=== PATIENT | male | born 1985 | race Caucasian/White ===

== ENCOUNTER 2021-01-08 16:16 | Emergency (ER) | payer OTHER, SELFPAY ==
--- NOTE | ~2021-01-08 | US_ITS ---
EXAMINATION: US VENOUS ULTRASOUND WITH DOPPLER LOWER EXTREMITY, RIGHT CLINICAL INFORMATION: Right lower extremity pain/swelling/redness. Question DVT with cellulitis COMPARISON: None TECHNIQUE: Ultrasound of the deep veins is performed from the hip to the calf with compression sonography and color and pulse Doppler assessment. Spectral analysis with color-flow imaging is performed. FINDINGS: There is normal venous compression and respiratory variation and augmented flow. The visualized common femoral vein, superficial femoral vein, profunda femoral vein, popliteal vein, and the trifurcation region shows no evidence of deep venous thrombosis. There is no significant popliteal fossa cyst. Several prominent right inguinal lymph nodes are present, presumably reactive. If the patient's symptoms persist, followup ultrasound in 5 days 7 days might be of value to exclude proximal propagation from a non-visualized calf vein. US/US venous duplex LE RT IMPRESSION: No DVT demonstrated in the right lower extremity. Right inguinal lymphadenopathy, likely reactive if there is evidence of infection/inflammation in the right lower extremity.
[2021-01-08 16:33] VITALS: BP 133/80; PULSE 83; RESP 18; TEMP 37; O2SAT 97; BMI 31.9
[2021-01-08 17:35] LABS: MANUAL DIFF FLAG NO
[2021-01-08 17:42] LABS: Basophils Percent Auto 0.2 % (0-2); Eosinophils Percent Auto 0.1 % (0-4); Hematocrit 43.5 % (42-52); Hemoglobin 14.9 g/dl (14.0-18.0); INTERNATIONAL NORM RATIO 1.3 (0.9-1.1); Imm Gran Abs Auto 0.09 X10*3/uL (0.00-0.03); Imm Gran Pct Auto 0.6 % (0.0-0.4); Lymphocytes Absolute Auto 1.6 X10*3/uL (1.2-4.9); Lymphocytes Percent Auto 10.4 % (20-40); Mean Corpuscular HGB Conc 34.3 g/dl (31.0-36.0); Mean Corpuscular Hemoglobin 28.5 pg (27.0-33.0); Mean Corpuscular Volume 83.2 fL (80-98); Mean Platelet Volume 9.3 fL (9.4-12.4); Monocytes Absolute Auto 1.5 X10*3/uL (0.1-1.2); Monocytes Percent Auto 9.5 % (2-11); Neutrophils Absolute Auto 12.1 X10*3/uL (2.0-8.3); Neutrophils Percent Auto 79.2 % (45-73); Platelet Count 263 X10*3/uL (160-400); Prothrombin Time 14.9 SEC (9.9-13.0); Red Blood Count 5.23 X10*6/uL (4.60-5.80); White Blood Count 15.3 X10*3/uL (4.8-10.8)
--- NOTE | 2021-01-08 18:09 | ED_ITS ---
HPI - Extremity Problem General Chief complaint: Extremity Injury, Lower Stated complaint: foot infection? Time Seen by Provider: 01/08/21 16:42 Source: patient Mode of arrival: ambulatory Limitations: no limitations History of Present Illness HPI Narrative: 35-year-old male with no significant past medical history presenting to the ED with complaints of redness/swelling/pain to his right lower extremity that he noticed few days ago although yesterday he noticed it got worse and is now almost up to his knee. He reports he recently had URI symptoms and was tested for COVID although was negative and his symptoms are improving although he still has some residual intermittent nausea / vomiting. MD Complaint: extremity pain and extremity swelling Onset (ago): day(s) ( few days worse since last night) Pain Consistency: constant Location: right and lower extremity Quality: aching and constant Relieving factors: nothing Exacerbating factors: palpation Associated symptoms: denies other symptoms Related Data Previous Rx's Medication Instructions Recorded acetaminophen [Tylenol Extra 1,000 mg PO QID PRN #14 tab 01/08/21 Strength] cephalexin 500 mg PO Q6H 10 Days #40 cap 01/08/21 doxycycline monohydrate 100 mg PO BID 10 Days #20 cap 01/08/21 ibuprofen 800 mg PO Q8H PRN #14 tab 01/08/21 oxycodone 5 mg PO BID PRN #12 tab 01/08/21 Allergies Allergy/AdvReac Type Severity Reaction Status Date / Time No Known Allergies Allergy Verified 01/08/21 16:32 [No Known Allergies*] Review of Systems Review of Systems: Constitutional : No Weight loss, No Fever, No Chills, No Night Sweats, No Fatigue, No Malaise ENT/Mouth : No Hearing loss, No Ear Pain, No Nasal Congestion, No Sinus Pain, No Hoarseness, No sore throat, No Rhinorrhea, No Swallowing Difficulty Eyes: No Eye Pain, No Swelling, No Redness, No Foreign Body, No Discharge, No Vision Changes Cardiovascular : No Chest Pain, No SOB, No Dyspnea on Exertion, No Orthopnea, No Edema, No Palpitations Respiratory : No Cough, No Sputum, No Wheezing, No Smoke Exposure, No Dyspnea Gastrointestinal : No Nausea, No Vomiting, No Diarrhea, No Constipation, No abdominal Pain, No Hematochezia, No Melena Genitourinary : no irregular bleeding, No Dysuria, No Urinary Frequency, No Hematuria, No Urinary Incontinence, No Urgency, No Flank Pain, No Urinary Flow Changes, No Hesitancy Musculoskeletal : positive joint pain / swelling with surrounding erythema, No Myalgias Skin : No Skin Lesions, No rash Neuro : No Weakness, No Numbness, No Paresthesias, No Loss of Consciousness, No Dizziness, No Headache Psych : No Anxiety/Panic, No Depression, No SI/HI/AH/VH, No Social Issues, Heme/Lymph: No Bruising, No Bleeding,No Lymphadenopathy Endocrine : No Polyuria, No Polydipsia, No Temperature Intolerance Yes all other systems are reviewed and are negative ON LICENSE OF [facility] Past Medical History Attestation statement: The following information was validated with the patient. Medical History No active medical problems Social History Social History Advance Directives: No Advance Directives Information Provided: No Physical Exam Vital Signs: Vital Signs: Last Vital Signs Temp 98.8 F 01/08/21 18:34 Pulse 73 01/08/21 18:29 Resp 16 01/08/21 18:29 BP 134/86 01/08/21 18:29 Pulse Ox 97 01/08/21 18:29 Body Mass Index 31.9 vital signs have been reviewed as normal and appeared to be correct. Blood pressure normal. Heart rate normal. Respiration rate normal. Temperature normal. Oxygen saturation normal. Appearance: Alert. Oriented X3. No acute distress. Head: Normal external exam. Normocephalic. Atraumatic. Eyes: PERRLA. EOMI. Conjunctiva and sclera normal. Eyelids normal. ENT: Pharynx normal. Uvula midline. Moist mucous membranes. Neck: Normal inspection. Neck supple. FROM. No adenopathy. Thyroid Normal. No meningeal signs. No neck mass noted. CVS: Normal heart rate and rhythm. Heart sound normal. Pulses normal throughout. No murmurs/rales/gallops. Respiratory: No respiratory distress. Painless inspiration. Breath sounds normal. No wheezes/rales/rhonchi noted. Chest nontender. No accessory muscle usage noted or decreased air movement noted. Abdomen: Soft and nontender. Bowel sounds normal in all 4 quadrants. No distention noted. No organomegaly noted. No visible injury noted. Back: Full range of motion noted. No rashes/lesion/induration/fluctuance or signs of infection noted. Skin: Skin warm and dry. Normal skin color. Normal skin turgor. No rashes/lesions/lacerations noted. Extremities: patient with tenderness to palpation to right lower extremity with erythema circumferential to the entire right lower extremity with soft tissue swelling / warm consistent with possible cellulitic infection. With associated right-sided calf tenderness. No left-sided calf tenderness. No lower extremity edema. Otherwise all other Extremities exhibit normal range of motion and non tender. Neuro: Oriented X 3. No motor deficit. No sensory deficit. Reflexes normal. Normal steady gait. No focal neuro deficits noted. Vascular: + radial pulses/+ 2 distal pedal pulses/+2 dorsalis pedis b/l. Normal cap refill. No cyanosis noted to upper extremity nails and lower extremity toes nails. Course Course Course Narrative: 17:20pm - 35-year-old male with no significant past medical history presenting to the ED with complaints of redness/swelling/pain to his right lower extremity that he noticed few days ago although yesterday he noticed it got worse and is now almost up to his knee. Plan: Labs, blood cultures, lactic acid, venous duplex ultrasound of right lower extremity to evaluate for possible DVT, COVID swab. Provide a L of IV fluids, 2 g of Rocephin and 5 mg of oxycodone. I offered the patient admission although he reports he has no medical insurance at this time therefore he is refusing admission reports that he will return if his symptoms worsen. I traced the erythema on his leg. I instructed him if the erythema passes the tracing julian that he needs to return to the emergency department immediately. Reevaluation(s) Reevaluation #1: - labs obtained and [place] [address]. CRP 16.50. Patient negative for COVID/RSV/ flu. ESR still p ending. Otherwise all other labs are within normal limits. Patient negative for DVT on ultrasound of right lower extremity. - I continue to offer patient admission although he is declining due to he does not have any medical insurance therefore after the L of fluid and IV antibiotics patient will be discharged for cellulitis infection with antibiotics and instructions return in 2 days for recheck of cellulitis and to follow up with primary care provider. Patient understands agrees with this plan. Time: 18:47 MDM - Extremity (Nontraumatic) Medical Records Attestation: I reviewed the patient's medical records. Lab Data Attestation: I reviewed the patient's lab results. Result diagrams: 01/08/21 17:27 01/08/21 17:27 Labs: Lab Results 01/08/21 01/08/21 01/08/21 Range/Units 17:27 17:27 17:27 WBC 15.3 H (4.8-10.8) X10*3/uL RBC 5.23 (4.60-5.80) X10*6/uL Hgb 14.9 (14.0-18.0) g/dl Hct 43.5 (42-52) % MCV 83.2 (80-98) fL MCH 28.5 (27.0-33.0) pg MCHC 34.3 (31.0-36.0) g/dl RDW 12.0 (11.0-16.0) % Plt Count 263 (160-400) X10*3/uL MPV 9.3 L (9.4-12.4) fL Immature Gran % (Auto) 0.6 H (0.0-0.4) % Neut % (Auto) 79.2 H (45-73) % Lymph % (Auto) 10.4 L (20-40) % [place] % (Auto) 9.5 (2-11) % Eos % (Auto) 0.1 (0-4) % Baso % (Auto) 0.2 (0-2) % Lymph # (Auto) 1.6 (1.2-4.9) X10*3/uL [place] # (Auto) 1.5 H (0.1-1.2) X10*3/uL Eos # (Auto) 0.0 (0.0-0.4) X10*3/uL Baso # (Auto) 0.0 (0.0-0.2) X10*3/uL Abs Immat Gran (auto) 0.09 H (0.00-0.03) X10*3/uL Absolute Neuts (auto) 12.1 H (2.0-8.3) X10*3/uL Absolute Nucleated RBC 0.000 (0.0-0.012) X10*3/uL Nucleated RBC % (auto) 0.0 (0.0-0.2) /100WBC PT 14.9 H (9.9-13.0) SEC INR 1.3 H (0.9-1.1) Sodium 139 (135-145) mmol/L Potassium 3.4 (3.3-5.1) mmol/L Chloride 103 (96-108) mmol/L Carbon Dioxide 25 (22-29) mmol/L Anion Gap 14 (12-20) BUN 15 (9-16) mg/dL Creatinine 1.11 (0.5-1.4) mg/dL Estim Creat Clear Calc 121.7 Estimated GFR > 60 Random Glucose 103 (60-115) mg/dL Lactic Acid (0.5-2.0) mmol/L Calcium 9.2 (8.4-10.2) mg/dL Magnesium 2.0 (1.6-2.6) mg/dL Total Bilirubin 0.5 (0.0-1.0) mg/dL AST 19 (5-37) U/L ALT 32 (0-40) U/L Alkaline Phosphatase 71 (39-117) U/L C-Reactive Protein 16.50 H (< or = 0.50) mg/dL B-Natriuretic Peptide (<100) pg/mL Total Protein 7.3 (6.5-8.0) g/dL Albumin 4.4 (3.5-5.0) g/dL Coronavirus (PCR) (Negative) Influenza Type A (PCR) (Negative) Influenza Type B (PCR) (Negative) RSV RNA Qual (PCR) (Negative) 01/08/21 01/08/21 01/08/21 Range/Units 17:27 17:27 17:27 WBC (4.8-10.8) X10*3/uL RBC (4.60-5.80) X10*6/uL Hgb (14.0-18.0) g/dl Hct (42-52) % MCV (80-98) fL MCH (27.0-33.0) pg MCHC (31.0-36.0) g/dl RDW (11.0-16.0) % Plt Count (160-400) X10*3/uL MPV (9.4-12.4) fL Immature Gran % (Auto) (0.0-0.4) % Neut % (Auto) (45-73) % Lymph % (Auto) (20-40) % [place] % (Auto) (2-11) % Eos % (Auto) (0-4) % Baso % (Auto) (0-2) % Lymph # (Auto) (1.2-4.9) X10*3/uL [place] # (Auto) (0.1-1.2) X10*3/uL Eos # (Auto) (0.0-0.4) X10*3/uL Baso # (Auto) (0.0-0.2) X10*3/uL Abs Immat Gran (auto) (0.00-0.03) X10*3/uL Absolute Neuts (auto) (2.0-8.3) X10*3/uL Absolute Nucleated RBC (0.0-0.012) X10*3/uL Nucleated RBC % (auto) (0.0-0.2) /100WBC PT (9.9-13.0) SEC INR (0.9-1.1) Sodium (135-145) mmol/L Potassium (3.3-5.1) mmol/L Chloride (96-108) mmol/L Carbon Dioxide (22-29) mmol/L Anion Gap (12-20) BUN (9-16) mg/dL Creatinine (0.5-1.4) mg/dL Estim Creat Clear Calc Estimated GFR Random Glucose (60-115) mg/dL Lactic Acid 0.8 (0.5-2.0) mmol/L Calcium (8.4-10.2) mg/dL Magnesium (1.6-2.6) mg/dL Total Bilirubin (0.0-1.0) mg/dL AST (5-37) U/L ALT (0-40) U/L Alkaline Phosphatase (39-117) U/L C-Reactive Protein (< or = 0.50) mg/dL B-Natriuretic Peptide 16 (<100) pg/mL Total Protein (6.5-8.0) g/dL Albumin (3.5-5.0) g/dL Coronavirus (PCR) NEGATIVE (Negative) Influenza Type A (PCR) NEGATIVE (Negative) Influenza Type B (PCR) NEGATIVE (Negative) RSV RNA Qual (PCR) NEGATIVE (Negative) Imaging Data Venous duplex ultrasound of right lower extremity: Attestation: I personally reviewed and interpreted this imaging study as follows: Radiologist's impression: FINDINGS: There is normal venous compression and respiratory variation and augmented flow. The visualized common femoral vein, superficial femoral vein, profunda femoral vein, popliteal vein, and the trifurcation region shows no evidence of deep venous thrombosis. There is no significant popliteal fossa cyst. Several prominent right inguinal lymph nodes are present, presumably reactive. If the patient's symptoms persist, followup ultrasound in 5 days 7 days might be of value to exclude proximal propagation from a non-visualized calf vein. US/US venous duplex LE RT IMPRESSION: No DVT demonstrated in the right lower extremity. Right inguinal lymphadenopathy, likely reactive if there is evidence of infection/inflammation in the right lower extremity. Critical Care Time Critical Care Time Critical Care Time: Yes Total Critical Care Time: 60 Attestation: I personally attest to this time spent taking care of the patient Discharge Plan Discharge Clinical Impression: Cellulitis Patient Disposition: Home, Self-Care Instructions: Cellulitis (ED) Additional Instructions: Please return in 24-48 hours if her symptoms worsen. Continue taking the antibiotics for 10 days as prescribed even if your symptoms improve. Prescriptions: New ibuprofen 800 mg tablet 800 mg PO Q8H PRN (Reason: pain) Qty: 14 RF: 0 acetaminophen [Tylenol Extra Strength] 500 mg tablet 1,000 mg PO QID PRN (Reason: fever or pain) Qty: 14 RF: 0 doxycycline monohydrate 100 mg capsule 100 mg PO BID 10 Days Qty: 20 RF: 0 oxycodone 5 mg tablet 5 mg PO BID PRN (Reason: pain) Qty: 12 RF: 0 cephalexin 500 mg capsule 500 mg PO Q6H 10 Days Qty: 40 RF: 0 Referrals: Physician,None [Primary Care Provider] - 2 days (your pcp) Harriet Villaseñor PA [Emergency Midlevel Provider] - 2 days ( If symptoms worsen.) Stand Alone Forms: Work/School Release Print Language: Hungarian
[2021-01-08 18:10] LABS: Lactic Acid 0.8 mmol/L (0.5-2.0)
[2021-01-08 18:15] LABS: Alanine Aminotransferase 32 U/L (0-40); Albumin Level 4.4 g/dL (3.5-5.0); Alkaline Phosphatase 71 U/L (39-117); Anion Gap 14 (12-20); Aspartate Amino Transferase 19 U/L (5-37); Bilirubin Total 0.5 mg/dL (0.0-1.0); Blood Urea Nitrogen 15 mg/dL (9-16); Calcium 9.2 mg/dL (8.4-10.2); Carbon Dioxide 25 mmol/L (22-29); Chloride 103 mmol/L (96-108); Creatinine Clr Calc Pharmacy 121.7; Estimated Glomerular Filt Rate > 60; Glucose Random 103 mg/dL (60-115); Potassium 3.4 mmol/L (3.3-5.1); Sodium 139 mmol/L (135-145); Total Protein 7.3 g/dL (6.5-8.0)
[2021-01-08 18:21] LABS: B Type Natriuretic Peptide 16 pg/mL (<100)
[2021-01-08 18:23] LABS: Influenza A PCR NEGATIVE (Negative); Influenza B PCR NEGATIVE (Negative); Resp Syncy Virus RNA Qual PCR NEGATIVE (Negative); SARS COV2 PCR INHOUSE NEGATIVE (Negative)
[2021-01-08] MEDS: oxyCODONE HCl Immed Release 5 MG TABLET PO (18:25)
[2021-01-08] MEDS: cefTRIAXone sodium 2 GM in 0.9 % Sodium Chloride 50 ML IV (18:25)
[2021-01-08] MEDS: 0.9 % Sodium Chloride 1,000 ML 999 ML IVCONT (18:26)
[2021-01-08 18:29] VITALS: BP 134/86; PULSE 73; RESP 16; O2SAT 97
[2021-01-08 18:34] VITALS: TEMP 37.1
[2021-01-08 18:55] LABS: Erythrocyte Sedimentation Rate 57 MM/HR (0-15)
== END 2021-01-08 19:43 | disposition home or self-care (01) ==
PROVIDERS: Physician Assistant Medical; Emergency Provider Emergency Medicine
DX: L03.115 Cellulitis of right lower limb (principal); M79.604 Pain in right leg; Z20.822 Contact with and (suspected) exposure to COVID-19
CPT/HCPCS: 0241U; 36415; 80053; 83605; 83735; 83880; 85025; 85610; 85652; 86140; 87040; 93971; 96361; 96365; 99284; 99285; J0696

== ENCOUNTER 2021-01-15 07:39 | Emergency (ER) | payer SELFPAY ==
--- NOTE | ~2021-01-15 | US_ITS ---
EXAMINATION: US VENOUS ULTRASOUND WITH DOPPLER LOWER EXTREMITY, RIGHT CLINICAL INFORMATION: Cellulitis COMPARISON: Previous exam 01/08/2021 TECHNIQUE: Ultrasound of the deep veins is performed from the hip to the calf with compression sonography and color and pulse Doppler assessment. Spectral analysis with color-flow imaging is performed. FINDINGS: There is normal venous compression and respiratory variation and augmented flow. The visualized common femoral vein, superficial femoral vein, profunda femoral vein, popliteal vein, and the trifurcation region shows no evidence of deep venous thrombosis. There is no significant popliteal fossa cyst. US/US venous duplex LE RT IMPRESSION: No DVT demonstrated in the right lower extremity.
[2021-01-15 07:43] VITALS: BP 133/76; PULSE 70; RESP 12; TEMP 36.7; O2SAT 98; BMI 32.1
--- NOTE | 2021-01-15 08:28 | PHA.MEDREC ---
Pharmacy Consult ? Medication Reconciliation Pharmacy has completed the medication reconciliation.
[2021-01-15 08:40] LABS: MANUAL DIFF FLAG NO
[2021-01-15 08:42] LABS: Basophils Absolute Auto 0.1 X10*3/uL (0.0-0.2); Basophils Percent Auto 0.6 % (0-2); Eosinophils Absolute Auto 0.3 X10*3/uL (0.0-0.4); Eosinophils Percent Auto 2.8 % (0-4); Hematocrit 41.2 % (42-52); Hemoglobin 13.4 g/dl (14.0-18.0); Lymphocytes Absolute Auto 2.5 X10*3/uL (1.2-4.9); Lymphocytes Percent Auto 24.9 % (20-40); Mean Corpuscular HGB Conc 32.5 g/dl (31.0-36.0); Mean Corpuscular Hemoglobin 28.1 pg (27.0-33.0); Mean Corpuscular Volume 86.4 fL (80-98); Monocytes Absolute Auto 0.8 X10*3/uL (0.1-1.2); Monocytes Percent Auto 7.6 % (2-11); Neutrophils Absolute Auto 6.1 X10*3/uL (2.0-8.3); Neutrophils Percent Auto 61.1 % (45-73); Platelet Count 381 X10*3/uL (160-400); Red Blood Count 4.77 X10*6/uL (4.60-5.80); Red Cell Distribution Width 12.2 % (11.0-16.0); White Blood Count 9.9 X10*3/uL (4.8-10.8)
[2021-01-15] MEDS: Ketorolac Tromethamine 15 MG/ML VIAL IVPUSH (08:43)
[2021-01-15 08:44] VITALS: BP 137/87; PULSE 69; RESP 16; O2SAT 99
[2021-01-15 08:57] LABS: COVID-19 Test Negative (Negative)
[2021-01-15 09:01] LABS: Lactic Acid 0.7 mmol/L (0.5-2.0)
[2021-01-15 09:05] LABS: C Reactive Protein 0.56 mg/dL (< or = 0.50)
[2021-01-15 09:07] LABS: Alanine Aminotransferase 87 U/L (0-40); Albumin Level 3.8 g/dL (3.5-5.0); Alkaline Phosphatase 59 U/L (39-117); Anion Gap 12 (12-20); Aspartate Amino Transferase 44 U/L (5-37); Bilirubin Direct < 0.2 mg/dL (0.0-0.5); Bilirubin Total 0.2 mg/dL (0.0-1.0); Blood Urea Nitrogen 23 mg/dL (9-16); Calcium 9.1 mg/dL (8.4-10.2); Carbon Dioxide 25 mmol/L (22-29); Chloride 109 mmol/L (96-108); Creatinine Clr Calc Pharmacy 124.2; Estimated Glomerular Filt Rate > 60; Glucose Random 107 mg/dL (60-115); Potassium 4.6 mmol/L (3.3-5.1); Sodium 141 mmol/L (135-145); Total Protein 6.4 g/dL (6.5-8.0)
[2021-01-15 09:10] LABS: B Type Natriuretic Peptide 39 pg/mL (<100)
--- NOTE | 2021-01-15 09:14 | ED.GENADULT ---
HPI - General Adult General Chief complaint: General Medical Stated complaint: swollen rt leg Time Seen by Provider: 01/15/21 07:49 Source: patient Mode of arrival: ambulatory History of Present Illness HPI narrative: 35-year-old male with a past medical history of right lower extremity cellulitis currently on p.o. Doxycycline/Keflex x7 days presenting to the ED complaining of persistent RLE swelling/erythema and pain. Reports symptoms have been persistent nor worsening or improving. Admits to compliance with previously prescribed antibiotics. Denies fever, chills, SOB, CP, numbness, tingling Related Data Previous Rx's Medication Instructions Recorded acetaminophen [Tylenol Extra 1,000 mg PO QID PRN #14 tab 01/08/21 Strength] cephalexin 500 mg PO Q6H 10 Days #40 cap 01/08/21 doxycycline monohydrate 100 mg PO BID 10 Days #20 cap 01/08/21 ibuprofen 800 mg PO Q8H PRN #14 tab 01/08/21 oxycodone 5 mg PO BID PRN #12 tab 01/08/21 acetaminophen [Tylenol Extra 500 mg PO Q6H PRN #20 tab 01/15/21 Strength] cephalexin 500 mg PO QID 5 Days #20 cap 01/15/21 doxycycline hyclate 100 mg PO BID 5 Days #10 tab 01/15/21 naproxen 500 mg PO BID PRN 10 Days #20 tab 01/15/21 Allergies Allergy/AdvReac Type Severity Reaction Status Date / Time No Known Allergies Allergy Verified 01/08/21 16:32 [No Known Allergies*] Review of Systems Review of Systems: Constitutional: No Fever, No Chills, No Fatigue, No Malaise Cardiovascular: No Chest Pain, No SOB, +Edema, No Palpitations Respiratory: No Cough, No Dyspnea Gastrointestinal: No Nausea, No Vomiting, No Abdominal pain Musculoskeletal: +joint pain, No Myalgias, +Joint Swelling Skin: No Skin Lesions, No rash Neuro: No Weakness, No Numbness, No Paresthesias Yes all other systems are reviewed and are negative [facility] Past Medical History Attestation statement: The following information was validated with the patient. Medical History No active medical problems Social History Social History Alcohol intake: never Patient Tobacco Use Status: Current everyday Tobacco user Smoked in Last 30 Days: Yes Use of substances other than those prescribed or required for medical reasons: Yes Substance Use Type: Marijuana Advance Directives: Yes Advance Directives Information Provided: Yes Advance Directives on File: No Physical Exam Vital Signs: Vital Signs: Last Vital Signs Temp 98.0 F 01/15/21 11:18 Pulse 50 01/15/21 11:18 Resp 16 01/15/21 11:18 BP 107/74 01/15/21 11:18 Pulse Ox 98 01/15/21 11:18 Body Mass Index 32.1 Const: General: cooperative, healthy appearing and no acute distress Orientation/consciousness: patient oriented x3 Limitations: no limitations HENMT: Head: Yes normal to inspection Ears: hearing grossly normal bilaterally General nose exam: Normal external nose present Face and sinus: Yes normal facial exam Eyes: General: appearance normal, both eyes and all related structures EOM: EOMs intact bilaterally Neck: Neck: Yes normal visual inspection Resp: Effort & Inspection: normal respiratory effort Auscultation: clear to auscultation bilaterally, no crackles, no rhonchi and no wheezes Cardio: Rate: regular rate Heart sounds: S1 normal heart sound present and S2 normal heart sound present Peripheral pulses: dorsalis pedis present GI: Inspection: Yes normal to inspection Skin: Other: Right lower extremity with circumferential erythema and pitting edema. Mildly warm to palpation. Extending proximally just below knee Rashes: no rashes Wounds: no wounds Neuro: General: patient oriented x3 Gait exam (Neuro): Normal gait present Extrem: General: Yes normal to inspection Course Course Course Narrative: -no leukocytosis, ESR improved from prior, BUN mildly elevated, AST/ALT mildly elevated. US venous duplex LE RT IMPRESSION: No DVT demonstrated in the right lower extremity. >>1022--case discussed with hospitalist who does not believe patient needs admission for IV antibiotics. Will extend patient's 10 day course of antibiotics for another 5 days to complete a 15 day course of p.o. doxycycline and Keflex. Patient is comfortable with this plan, I discussed worrisome signs and symptoms and strict return precautions including persistent/worsening erythema, pain, or fevers to return to the ED immediately, he verbalized understanding Medical Decision Making MDM Narrative Medical decision making narrative: 35-year-old male with a past medical history of right lower extremity cellulitis currently on p.o. Doxycycline/Keflex x7 days presenting to the ED complaining of persistent RLE swelling/erythema and pain. On exam stable, NAD/nontoxic, lungs CTA, RLE with pitting edema and notable circumferential erythema. Concern for persistent cellulitis vs DVT. Lower concern for CHF Plan: Labs, lactate, blood cultures, IV antibiotics, venous duplex ultrasound Lab Data Result diagrams: 01/15/21 08:33 01/15/21 08:33 Labs: Lab Results 01/15/21 01/15/21 01/15/21 Range/Units 08:33 08:33 08:33 WBC (4.8-10.8) X10*3/uL RBC (4.60-5.80) X10*6/uL Hgb (14.0-18.0) g/dl Hct (42-52) % MCV (80-98) fL MCH (27.0-33.0) pg MCHC (31.0-36.0) g/dl RDW (11.0-16.0) % Plt Count (160-400) X10*3/uL MPV (9.4-12.4) fL Immature Gran % (Auto) (0.0-0.4) % Neut % (Auto) (45-73) % Lymph % (Auto) (20-40) % [place] % (Auto) (2-11) % Eos % (Auto) (0-4) % Baso % (Auto) (0-2) % Lymph # (Auto) (1.2-4.9) X10*3/uL [place] # (Auto) (0.1-1.2) X10*3/uL Eos # (Auto) (0.0-0.4) X10*3/uL Baso # (Auto) (0.0-0.2) X10*3/uL Abs Immat Gran (auto) (0.00-0.03) X10*3/uL Absolute Neuts (auto) (2.0-8.3) X10*3/uL Absolute Nucleated RBC (0.0-0.012) X10*3/uL Nucleated RBC % (auto) (0.0-0.2) /100WBC ESR 16 H (0-15) MM/HR Sodium (135-145) mmol/L Potassium (3.3-5.1) mmol/L Chloride (96-108) mmol/L Carbon Dioxide (22-29) mmol/L Anion Gap (12-20) BUN (9-16) mg/dL Creatinine (0.5-1.4) mg/dL Estim Creat Clear Calc Estimated GFR Random Glucose (60-115) mg/dL Lactic Acid 0.7 (0.5-2.0) mmol/L Calcium (8.4-10.2) mg/dL Total Bilirubin (0.0-1.0) mg/dL Direct Bilirubin (0.0-0.5) mg/dL AST (5-37) U/L ALT (0-40) U/L Alkaline Phosphatase (39-117) U/L C-Reactive Protein 0.56 H (< or = 0.50) mg/dL B-Natriuretic Peptide (<100) pg/mL Total Protein (6.5-8.0) g/dL Albumin (3.5-5.0) g/dL COVID-19 ([facility]) (Negative) COVID-19 Clin Com 01/15/21 01/15/21 01/15/21 Range/Units 08:33 08:33 08:33 WBC 9.9 (4.8-10.8) X10*3/uL RBC 4.77 (4.60-5.80) X10*6/uL Hgb 13.4 L (14.0-18.0) g/dl Hct 41.2 L (42-52) % MCV 86.4 (80-98) fL MCH 28.1 (27.0-33.0) pg MCHC 32.5 (31.0-36.0) g/dl RDW 12.2 (11.0-16.0) % Plt Count 381 D (160-400) X10*3/uL MPV 9.0 L (9.4-12.4) fL Immature Gran % (Auto) 3.0 H (0.0-0.4) % Neut % (Auto) 61.1 (45-73) % Lymph % (Auto) 24.9 (20-40) % [place] % (Auto) 7.6 (2-11) % Eos % (Auto) 2.8 (0-4) % Baso % (Auto) 0.6 (0-2) % Lymph # (Auto) 2.5 (1.2-4.9) X10*3/uL [place] # (Auto) 0.8 (0.1-1.2) X10*3/uL Eos # (Auto) 0.3 (0.0-0.4) X10*3/uL Baso # (Auto) 0.1 (0.0-0.2) X10*3/uL Abs Immat Gran (auto) 0.30 H (0.00-0.03) X10*3/uL Absolute Neuts (auto) 6.1 (2.0-8.3) X10*3/uL Absolute Nucleated RBC 0.000 (0.0-0.012) X10*3/uL Nucleated RBC % (auto) 0.0 (0.0-0.2) /100WBC ESR (0-15) MM/HR Sodium 141 (135-145) mmol/L Potassium 4.6 D (3.3-5.1) mmol/L Chloride 109 H (96-108) mmol/L Carbon Dioxide 25 (22-29) mmol/L Anion Gap 12 (12-20) BUN 23 H D (9-16) mg/dL Creatinine 1.09 (0.5-1.4) mg/dL Estim Creat Clear Calc 124.2 Estimated GFR > 60 Random Glucose 107 (60-115) mg/dL Lactic Acid (0.5-2.0) mmol/L Calcium 9.1 (8.4-10.2) mg/dL Total Bilirubin 0.2 (0.0-1.0) mg/dL Direct Bilirubin < 0.2 (0.0-0.5) mg/dL AST 44 H D (5-37) U/L ALT 87 H (0-40) U/L Alkaline Phosphatase 59 (39-117) U/L C-Reactive Protein (< or = 0.50) mg/dL B-Natriuretic Peptide (<100) pg/mL Total Protein 6.4 L (6.5-8.0) g/dL Albumin 3.8 (3.5-5.0) g/dL COVID-19 ([facility]ONY) Negative (Negative) COVID-19 Clin Com See Note 01/15/21 Range/Units 08:33 WBC (4.8-10.8) X10*3/uL RBC (4.60-5.80) X10*6/uL Hgb (14.0-18.0) g/dl Hct (42-52) % MCV (80-98) fL MCH (27.0-33.0) pg MCHC (31.0-36.0) g/dl RDW (11.0-16.0) % Plt Count (160-400) X10*3/uL MPV (9.4-12.4) fL Immature Gran % (Auto) (0.0-0.4) % Neut % (Auto) (45-73) % Lymph % (Auto) (20-40) % [place] % (Auto) (2-11) % Eos % (Auto) (0-4) % Baso % (Auto) (0-2) % Lymph # (Auto) (1.2-4.9) X10*3/uL [place] # (Auto) (0.1-1.2) X10*3/uL Eos # (Auto) (0.0-0.4) X10*3/uL Baso # (Auto) (0.0-0.2) X10*3/uL Abs Immat Gran (auto) (0.00-0.03) X10*3/uL Absolute Neuts (auto) (2.0-8.3) X10*3/uL Absolute Nucleated RBC (0.0-0.012) X10*3/uL Nucleated RBC % (auto) (0.0-0.2) /100WBC ESR (0-15) MM/HR Sodium (135-145) mmol/L Potassium (3.3-5.1) mmol/L Chloride (96-108) mmol/L Carbon Dioxide (22-29) mmol/L Anion Gap (12-20) BUN (9-16) mg/dL Creatinine (0.5-1.4) mg/dL Estim Creat Clear Calc Estimated GFR Random Glucose (60-115) mg/dL Lactic Acid (0.5-2.0) mmol/L Calcium (8.4-10.2) mg/dL Total Bilirubin (0.0-1.0) mg/dL Direct Bilirubin (0.0-0.5) mg/dL AST (5-37) U/L ALT (0-40) U/L Alkaline Phosphatase (39-117) U/L C-Reactive Protein (< or = 0.50) mg/dL B-Natriuretic Peptide 39 (<100) pg/mL Total Protein (6.5-8.0) g/dL Albumin (3.5-5.0) g/dL COVID-19 ([facility]) (Negative) COVID-19 Clin Com Discharge Plan Discharge Clinical Impression: Cellulitis Qualifiers: Site of cellulitis: extremity Site of cellulitis of extremity: lower extremity Laterality: right Qualified Code(s): L03.115 - Cellulitis of right lower limb Patient Disposition: Home, Self-Care Instructions: Cellulitis (ED) Additional Instructions: Continue taking doxycycline and Keflex as prescribed It is important for you to follow-up with your primary care doctor Elevate your leg If her symptoms are persistent or worsening, the swelling, redness, pain is increasing, he developed fevers, or chills please return to the ED immediately Prescriptions: New acetaminophen [Tylenol Extra Strength] 500 mg tablet 500 mg PO Q6H PRN (Reason: pain or fever) Qty: 20 RF: 0 doxycycline hyclate 100 mg tablet 100 mg PO BID 5 Days Qty: 10 RF: 0 naproxen 500 mg tablet 500 mg PO BID PRN (Reason: pain) 10 Days Qty: 20 RF: 0 cephalexin 500 mg capsule 500 mg PO QID 5 Days Qty: 20 RF: 0 No Action ibuprofen 800 mg tablet 800 mg PO Q8H PRN (Reason: pain) Qty: 14 RF: 0 acetaminophen [Tylenol Extra Strength] 500 mg tablet 1,000 mg PO QID PRN (Reason: fever or pain) Qty: 14 RF: 0 doxycycline monohydrate 100 mg capsule 100 mg PO BID 10 Days Qty: 20 RF: 0 oxycodone 5 mg tablet 5 mg PO BID PRN (Reason: pain) Qty: 12 RF: 0 cephalexin 500 mg capsule 500 mg PO Q6H 10 Days Qty: 40 RF: 0 Referrals: ED Physician,Generic [Emergency Provider] - 2 days Physician,None [Primary Care Provider] - 2 days
[2021-01-15 09:23] LABS: Erythrocyte Sedimentation Rate 16 MM/HR (0-15)
[2021-01-15] MEDS: Piperacillin Sodium/Tazobactam 3.375 GM in 0.9 % Sodium Chloride 50 ML IV (09:55)
[2021-01-15] MEDS: vancomycin HCL 1,500 MG in 0.9 % Sodium Chloride 500 ML 333.33 MG IV (10:05)
[2021-01-15 11:18] VITALS: BP 107/74; PULSE 50; RESP 16; TEMP 36.7; O2SAT 98
[2021-01-15 13:04] VITALS: BP 124/75; PULSE 61; RESP 16; TEMP 36.9; O2SAT 98
--- NOTE | 2021-01-15 13:20 | PM.IMCN ---
History of Present Illness Data of Consult Service Date: 01/15/21 Requesting physician: Asya Ro Primary Care Provider: None Physician HPI Reason for consult: Evaluation for the need for inpatient admission This is a 35 yo M with no significant PMH who presents to the hospital for evaluation of this RLE cellulitis. The patient reports that on January 04, he began having nausea/vomiting and fevers. He went to urgent care to evaluate for COVID and apparently this was negative. Over the next several days, he bagan having RLE pain, swelling and redness. He presented to the emergency room @ [facility] for evaluation. During that ED visit, he was diagnosed with cellulitis and was discharged home on a course of oral doxy/keflex. Since the, he reports significant improvement in the erythema, swelling, pain. He reports no fevers in rachel 5-6 days. He reports he came to the ED seeking reassurance that his condition was improved and also because he needed a note for work (currently does not have a PCP). He endorses compliance with his antibiotics. Review of Systems Review of Systems: No fevers or chills RLE pain, swelling, redness improving PMFSH Medical History No active medical problems Social History Alcohol intake: never Patient Tobacco Use Status: Current everyday Tobacco user Smoked in Last 30 Days: Yes Use of substances other than those prescribed or required for medical reasons: Yes Substance Use Type: Marijuana Advance Directives: Yes Advance Directives Information Provided: Yes Advance Directives on File: No Meds Allergies Allergy/AdvReac Type Severity Reaction Status Date / Time No Known Allergies Allergy Verified 01/08/21 16:32 [No Known Allergies*] Active Medications: Current Medications Generic Name Dose Route Start Last Admin Trade Name Freq PRN Reason Stop Dose Admin Pharmacy Consult 1 each 01/15/21 08:15 Consult Rx Perform Med Rec MISCELLANE ONCE PRN Consult order Physical Exam Vital Signs and Narrative: Vital Signs: Last Vital Signs Temp 98.4 F 01/15/21 13:04 Pulse 61 01/15/21 13:04 Resp 16 01/15/21 13:04 BP 124/75 01/15/21 13:04 Pulse Ox 98 01/15/21 13:04 Body Mass Index 32.1 Skin: Other: Results Labs CBC and Chem 7: 01/15/21 08:33 01/15/21 08:33 Labs: Laboratory Results - last 24 hr 01/15/21 01/15/21 01/15/21 08:33 08:33 08:33 MCV MCH MCHC RDW Plt Count MPV Immature Gran % (Auto) Neut % (Auto) Lymph % (Auto) [place] % (Auto) Eos % (Auto) Baso % (Auto) Lymph # (Auto) [place] # (Auto) Eos # (Auto) Baso # (Auto) Abs Immat Gran (auto) Absolute Neuts (auto) Absolute Nucleated RBC Nucleated RBC % (auto) ESR 16 H Anion Gap Estim Creat Clear Calc Estimated GFR Random Glucose Lactic Acid 0.7 Calcium Total Bilirubin Direct Bilirubin AST ALT Alkaline Phosphatase C-Reactive Protein 0.56 H B-Natriuretic Peptide Total Protein Albumin COVID-19 ([facility]) COVID-[employer] 01/15/21 01/15/21 01/15/21 08:33 08:33 08:33 MCV 86.4 MCH 28.1 MCHC 32.5 RDW 12.2 Plt Count 381 D MPV 9.0 L Immature Gran % (Auto) 3.0 H Neut % (Auto) 61.1 Lymph % (Auto) 24.9 [place] % (Auto) 7.6 Eos % (Auto) 2.8 Baso % (Auto) 0.6 Lymph # (Auto) 2.5 [place] # (Auto) 0.8 Eos # (Auto) 0.3 Baso # (Auto) 0.1 Abs Immat Gran (auto) 0.30 H Absolute Neuts (auto) 6.1 Absolute Nucleated RBC 0.000 Nucleated RBC % (auto) 0.0 ESR Anion Gap 12 Estim Creat Clear Calc 124.2 Estimated GFR > 60 Random Glucose 107 Lactic Acid Calcium 9.1 Total Bilirubin 0.2 Direct Bilirubin < 0.2 AST 44 H D ALT 87 H Alkaline Phosphatase 59 C-Reactive Protein B-Natriuretic Peptide Total Protein 6.4 L Albumin 3.8 COVID-19 ([facility]) Negative COVID-19 Clin Com See Note 01/15/21 08:33 MCV MCH MCHC RDW Plt Count MPV Immature Gran % (Auto) Neut % (Auto) Lymph % (Auto) [place] % (Auto) Eos % (Auto) Baso % (Auto) Lymph # (Auto) [place] # (Auto) Eos # (Auto) Baso # (Auto) Abs Immat Gran (auto) Absolute Neuts (auto) Absolute Nucleated RBC Nucleated RBC % (auto) ESR Anion Gap Estim Creat Clear Calc Estimated GFR Random Glucose Lactic Acid Calcium Total Bilirubin Direct Bilirubin AST ALT Alkaline Phosphatase C-Reactive Protein B-Natriuretic Peptide 39 Total Protein Albumin COVID-19 ([facility]) COVID-19 Clin Com Imaging Radiologist's Impressions: Impressions Venous Duplex 01/15/21 08:22 IMPRESSION: No DVT demonstrated in the right lower extremity. Assessment and Plan (1) Cellulitis: Qualifiers: Laterality: right Site of cellulitis: extremity Site of cellulitis of extremity: lower extremity Qualified Code(s): L03.115 - Cellulitis of right lower limb Status: Acute This is a 35 yo M with no significant PMH who presented to the ED seeking reassurance of his improving cellulitis. Overall (compare pictures from ED visit on 01/08/21) his condition appears to be significantly improved. His edema, erythema and tenderness have improved. He reports not fevers in 5-6 days (bascially within 24-48 hours of starting his antibiotics). He denies any trouble weight bearing. His blood work has all improved as well (WBC, ESR/CRP are all down). His doppler studies are negative. All indications point towards a resolving cellulitis. I do not feel that he needs inpatient admission at this time. He should complete his antibiotic course -- which can be extended by another 3-4 days. (Total 10-14 days). I have educated him on the warning signs of worsening infection (fevers/chills, worsening of his swelling/erythema/pain). He expresses understanding and knows to come back to the hospital should his condition worsen. He is comfortable with this plan. I have discussed the above with the ED provider.
== END 2021-01-15 13:24 | disposition home or self-care (01) ==
PROVIDERS: Physician Assistant; Emergency Provider Emergency Medicine
DX: L03.115 Cellulitis of right lower limb (principal); R60.0 Localized edema; M79.604 Pain in right leg; R06.02 Shortness of breath; F12.90 Cannabis use, unspecified, uncomplicated; F17.200 Nicotine dependence, unspecified, uncomplicated; Z71.6 Tobacco abuse counseling; Z79.899 Other long term (current) drug therapy; Z20.822 Contact with and (suspected) exposure to COVID-19
CPT/HCPCS: 36415; 80048; 80076; 83605; 83880; 85025; 85652; 86140; 87040; 87635; 93971; 96365; 96375; 99284; J1885; J2543; J3370

== ENCOUNTER 2021-03-25 13:06 | Emergency (ER) | payer SELFPAY ==
[2021-03-25 13:27] VITALS: BP 132/65; PULSE 78; RESP 18; TEMP 37.9; O2SAT 99; BMI 33.3
== END 2021-03-25 15:59 | disposition left against medical advice (07) ==
PROVIDERS: Emergency Provider Emergency Medicine
DX: L03.119 Cellulitis of unspecified part of limb (principal)
CPT/HCPCS: 99281; 99282

== ENCOUNTER 2021-03-26 07:02 | Emergency (ER) | payer SELFPAY ==
[2021-03-26 07:12] VITALS: BP 154/71; PULSE 76; RESP 18; TEMP 36.8; O2SAT 98; BMI 33.3
--- NOTE | 2021-03-26 07:12 | ED_ITS ---
HPI - Skin/Abscess/Foreign Bdy General Chief complaint: General Medical Stated complaint: rt leg cellulitis Time Seen by Provider: 03/26/21 07:08 Source: patient and old records reviewed Mode of arrival: ambulatory Limitations: no limitations History of Present Illness MD complaint: rash and lesion Onset (ago): month(s) (1) Tetanus up to date: yes Location: RLE Severity: moderate Quality: aching Pain Consistency: constant Relieving factors: none Exacerbating factors: none Context: other (4th bout of cellulitis usually responds to oral medications) Associated symptoms: nausea Treatments prior to arrival: other Related Data Previous Rx's Medication Instructions Recorded acetaminophen 500 mg tablet 1,000 mg PO QID PRN #14 tab 01/08/21 (Tylenol Extra Strength) cephalexin 500 mg capsule 500 mg PO Q6H 10 Days #40 cap 01/08/21 doxycycline monohydrate 100 mg 100 mg PO BID 10 Days #20 cap 01/08/21 capsule ibuprofen 800 mg tablet 800 mg PO Q8H PRN #14 tab 01/08/21 oxycodone 5 mg tablet 5 mg PO BID PRN #12 tab 01/08/21 acetaminophen 500 mg tablet 500 mg PO Q6H PRN #20 tab 01/15/21 (Tylenol Extra Strength) cephalexin 500 mg capsule 500 mg PO QID 5 Days #20 cap 01/15/21 doxycycline hyclate 100 mg tablet 100 mg PO BID 5 Days #10 tab 01/15/21 naproxen 500 mg tablet 500 mg PO BID PRN 10 Days #20 tab 01/15/21 cephalexin 500 mg capsule 500 mg PO BID 10 Days #20 cap 03/26/21 doxycycline hyclate 100 mg capsule 100 mg PO BID 10 Days #20 cap 03/26/21 Allergies Allergy/AdvReac Type Severity Reaction Status Date / Time No Known Allergies Allergy Verified 03/25/21 13:27 [No Known Allergies*] Review of Systems Review of Systems: Constitutional : No Fever, No Chills ENT/Mouth : No sore throat, No Rhinorrhea Eyes: No Eye Pain, No Swelling, No Redness Cardiovascular : No Chest Pain, No SOB Respiratory : No Cough, No Sputum Gastrointestinal : pos Nausea, No Vomiting, No Diarrhea, No abdominal Pain Genitourinary : No Dysuria, No Hematuria Musculoskeletal : No joint pain, No Myalgias, No Joint Swelling Skin : No Skin Lesions, positive skin rash Neuro : No Weakness, No Numbness, No Headache Psych : No Anxiety, No Depression Heme/Lymph: No Bruising, No Bleeding,No Lymphadenopathy Endocrine : No Polyuria, No Polydipsia All other systems reviewed and are negative [facility] Past Medical History Attestation statement: The following information was validated with the patient. Medical History Cellulitis No active medical problems Social History Social History Alcohol intake: never Patient Tobacco Use Status: Current everyday Tobacco user Substance Use Type: Marijuana Advance Directives: No Physical Exam Vital Signs: Vital Signs: Last Vital Signs Temp 98.6 F 03/26/21 08:00 Pulse 73 03/26/21 08:00 Resp 16 03/26/21 08:00 BP 124/64 03/26/21 08:00 Pulse Ox 98 03/26/21 08:00 Body Mass Index 33.3 Appearance: Alert. Oriented X3. No acute distress. Eyes: Pupils equal, round and reactive to light. ENT: Pharynx normal. Neck: Normal inspection. Neck supple. CVS: Normal heart rate and rhythm. Pulses normal. Respiratory: No respiratory distress. Breath sounds normal. Abdomen: Soft and nontender. Skin: Skin warm and dry. Normal skin color. RLE warm and erythematous mild ttp proximal calf down to ankle Extremities: RLE nonpitting edema noted Neuro: Oriented X 3. No motor deficit. No sensory deficit. Course Course Course Narrative: chronically high WBC count, afebrile negative lactic acid MDM - Skin/Abscess/Foreign Bdy MDM Narrative Medical decision making narrative: 35 yo male otherwise healthy here with recurrent RLE cellulitis afebrile mild nausea - has done well with cephalexin and doxy in the past. Prior US negative for DVT - suspect recurrent cellulitis - labs, cultures, IV vanco and zosyn, anticipte oral medications at home - did discuss following up with ID for possible long term care administrator proph antibiotics. Lab Data Result diagrams: 03/26/21 07:48 03/26/21 07:48 Labs: Lab Results 03/26/21 03/26/21 03/26/21 Range/Units 07:48 07:48 07:48 WBC 15.7 H (4.8-10.8) X10*3/uL RBC 4.59 L (4.60-5.80) X10*6/uL Hgb 13.1 L (14.0-18.0) g/dl Hct 39.2 L (42-52) % MCV 85.4 (80-98) fL MCH 28.5 (27.0-33.0) pg MCHC 33.4 (31.0-36.0) g/dl RDW 12.7 (11.0-16.0) % Plt Count 256 D (160-400) X10*3/uL MPV 9.5 (9.4-12.4) fL Immature Gran % (Auto) 0.6 H (0.0-0.4) % Neut % (Auto) 82.2 H (45-73) % Lymph % (Auto) 8.2 L (20-40) % [place] % (Auto) 8.5 (2-11) % Eos % (Auto) 0.3 (0-4) % Baso % (Auto) 0.2 (0-2) % Lymph # (Auto) 1.3 (1.2-4.9) X10*3/uL [place] # (Auto) 1.3 H (0.1-1.2) X10*3/uL Eos # (Auto) 0.1 (0.0-0.4) X10*3/uL Baso # (Auto) 0.0 (0.0-0.2) X10*3/uL Abs Immat Gran (auto) 0.10 H (0.00-0.03) X10*3/uL Absolute Neuts (auto) 12.9 H (2.0-8.3) X10*3/uL Absolute Nucleated RBC 0.000 (0.0-0.012) X10*3/uL Nucleated RBC % (auto) 0.0 (0.0-0.2) /100WBC Sodium 136 (135-145) mmol/L Potassium 3.7 (3.3-5.1) mmol/L Chloride 105 (96-108) mmol/L Carbon Dioxide 22 (22-29) mmol/L Anion Gap 13 (12-20) BUN 19 H (9-16) mg/dL Creatinine 1.05 (0.5-1.4) mg/dL Estim Creat Clear Calc 131.4 Estimated GFR > 60 Random Glucose 106 (60-115) mg/dL Lactic Acid 0.9 (0.5-2.0) mmol/L Calcium 8.7 (8.4-10.2) mg/dL Magnesium 1.8 (1.6-2.6) mg/dL Total Bilirubin 0.5 (0.0-1.0) mg/dL Direct Bilirubin 0.3 (0.0-0.5) mg/dL AST 20 D (5-37) U/L ALT 30 (0-40) U/L Alkaline Phosphatase 51 (39-117) U/L Total Protein 6.5 (6.5-8.0) g/dL Albumin 4.0 (3.5-5.0) g/dL COVID-19 ([facility]) (Negative) COVID-19 Clin Com 03/26/21 Range/Units 07:48 WBC (4.8-10.8) X10*3/uL RBC (4.60-5.80) X10*6/uL Hgb (14.0-18.0) g/dl Hct (42-52) % MCV (80-98) fL MCH (27.0-33.0) pg MCHC (31.0-36.0) g/dl RDW (11.0-16.0) % Plt Count (160-400) X10*3/uL MPV (9.4-12.4) fL Immature Gran % (Auto) (0.0-0.4) % Neut % (Auto) (45-73) % Lymph % (Auto) (20-40) % [place] % (Auto) (2-11) % Eos % (Auto) (0-4) % Baso % (Auto) (0-2) % Lymph # (Auto) (1.2-4.9) X10*3/uL [place] # (Auto) (0.1-1.2) X10*3/uL Eos # (Auto) (0.0-0.4) X10*3/uL Baso # (Auto) (0.0-0.2) X10*3/uL Abs Immat Gran (auto) (0.00-0.03) X10*3/uL Absolute Neuts (auto) (2.0-8.3) X10*3/uL Absolute Nucleated RBC (0.0-0.012) X10*3/uL Nucleated RBC % (auto) (0.0-0.2) /100WBC Sodium (135-145) mmol/L Potassium (3.3-5.1) mmol/L Chloride (96-108) mmol/L Carbon Dioxide (22-29) mmol/L Anion Gap (12-20) BUN (9-16) mg/dL Creatinine (0.5-1.4) mg/dL Estim Creat Clear Calc Estimated GFR Random Glucose (60-115) mg/dL Lactic Acid (0.5-2.0) mmol/L Calcium (8.4-10.2) mg/dL Magnesium (1.6-2.6) mg/dL Total Bilirubin (0.0-1.0) mg/dL Direct Bilirubin (0.0-0.5) mg/dL AST (5-37) U/L ALT (0-40) U/L Alkaline Phosphatase (39-117) U/L Total Protein (6.5-8.0) g/dL Albumin (3.5-5.0) g/dL COVID-19 ([facility]) Negative (Negative) COVID-19 Clin Com See Note Discharge Plan Discharge Clinical Impression: Cellulitis Qualifiers: Site of cellulitis: extremity Site of cellulitis of extremity: lower extremity Laterality: right Qualified Code(s): L03.115 - Cellulitis of right lower limb Patient Disposition: Home, Self-Care Instructions: Cellulitis (ED) Additional Instructions: return to ED for any worsening symptoms or concerns Prescriptions: New doxycycline hyclate 100 mg capsule 100 mg PO BID 10 Days Qty: 20 RF: 0 cephalexin 500 mg capsule 500 mg PO BID 10 Days Qty: 20 RF: 0 No Action ibuprofen 800 mg tablet 800 mg PO Q8H PRN (Reason: pain) Qty: 14 RF: 0 acetaminophen [Tylenol Extra Strength] 500 mg tablet 1,000 mg PO QID PRN (Reason: fever or pain) Qty: 14 RF: 0 doxycycline monohydrate 100 mg capsule 100 mg PO BID 10 Days Qty: 20 RF: 0 oxycodone 5 mg tablet 5 mg PO BID PRN (Reason: pain) Qty: 12 RF: 0 cephalexin 500 mg capsule 500 mg PO Q6H 10 Days Qty: 40 RF: 0 acetaminophen [Tylenol Extra Strength] 500 mg tablet 500 mg PO Q6H PRN (Reason: pain or fever) Qty: 20 RF: 0 doxycycline hyclate 100 mg tablet 100 mg PO BID 5 Days Qty: 10 RF: 0 naproxen 500 mg tablet 500 mg PO BID PRN (Reason: pain) 10 Days Qty: 20 RF: 0 cephalexin 500 mg capsule 500 mg PO QID 5 Days Qty: 20 RF: 0 Referrals: Tarah Aceves MD [Physician] - 2 weeks Stand Alone Forms: Work/School Release
--- NOTE | 2021-03-26 07:45 | PC.NURSE ---
Pt alert and oriented, vss, pt presents to the ed with recurrent RLE cellulitis, he denies fever, he reports mild nausea no vomiting. no other symptoms reported. Swelling and redness noted, extremity warm to touch. Pt in no apparent distress.
[2021-03-26 07:54] LABS: MANUAL DIFF FLAG NO
[2021-03-26] MEDS: Ketorolac Tromethamine 15 MG/ML VIAL 30 MG IVPUSH (07:55)
[2021-03-26] MEDS: ondansetron HCL 4 MG/2 ML VIAL IVPUSH (07:55)
[2021-03-26] MEDS: Piperacillin Sodium/Tazobactam 3.375 GM in 0.9 % Sodium Chloride 50 ML IV (07:55)
[2021-03-26 07:56] LABS: Basophils Percent Auto 0.2 % (0-2); Eosinophils Absolute Auto 0.1 X10*3/uL (0.0-0.4); Eosinophils Percent Auto 0.3 % (0-4); Hematocrit 39.2 % (42-52); Hemoglobin 13.1 g/dl (14.0-18.0); Imm Gran Pct Auto 0.6 % (0.0-0.4); Lymphocytes Absolute Auto 1.3 X10*3/uL (1.2-4.9); Lymphocytes Percent Auto 8.2 % (20-40); Mean Corpuscular HGB Conc 33.4 g/dl (31.0-36.0); Mean Corpuscular Hemoglobin 28.5 pg (27.0-33.0); Mean Corpuscular Volume 85.4 fL (80-98); Mean Platelet Volume 9.5 fL (9.4-12.4); Monocytes Absolute Auto 1.3 X10*3/uL (0.1-1.2); Monocytes Percent Auto 8.5 % (2-11); Neutrophils Absolute Auto 12.9 X10*3/uL (2.0-8.3); Neutrophils Percent Auto 82.2 % (45-73); Platelet Count 256 X10*3/uL (160-400); Red Blood Count 4.59 X10*6/uL (4.60-5.80); Red Cell Distribution Width 12.7 % (11.0-16.0); White Blood Count 15.7 X10*3/uL (4.8-10.8)
[2021-03-26 08:00] VITALS: BP 124/64; PULSE 73; RESP 16; TEMP 37; O2SAT 98
[2021-03-26 08:05] LABS: Lactic Acid 0.9 mmol/L (0.5-2.0)
[2021-03-26 08:09] LABS: Alanine Aminotransferase 30 U/L (0-40); Alkaline Phosphatase 51 U/L (39-117); Anion Gap 13 (12-20); Aspartate Amino Transferase 20 U/L (5-37); Bilirubin Direct 0.3 mg/dL (0.0-0.5); Bilirubin Total 0.5 mg/dL (0.0-1.0); Blood Urea Nitrogen 19 mg/dL (9-16); Calcium 8.7 mg/dL (8.4-10.2); Carbon Dioxide 22 mmol/L (22-29); Chloride 105 mmol/L (96-108); Creatinine Clr Calc Pharmacy 131.4; Estimated Glomerular Filt Rate > 60; Glucose Random 106 mg/dL (60-115); Magnesium 1.8 mg/dL (1.6-2.6); Potassium 3.7 mmol/L (3.3-5.1); Sodium 136 mmol/L (135-145); Total Protein 6.5 g/dL (6.5-8.0)
[2021-03-26] MEDS: 0.9 % Sodium Chloride 1,000 ML 999 ML IVCONT (08:09)
[2021-03-26 08:13] LABS: COVID-19 Test Negative (Negative)
[2021-03-26] MEDS: vancomycin HCL 1,500 MG in 0.9 % Sodium Chloride 500 ML 333.33 MG IV (08:29)
== END 2021-03-26 10:14 | disposition home or self-care (01) ==
PROVIDERS: Emergency Provider Emergency Medicine
DX: L03.115 Cellulitis of right lower limb (principal); F17.200 Nicotine dependence, unspecified, uncomplicated; Z20.822 Contact with and (suspected) exposure to COVID-19; F12.90 Cannabis use, unspecified, uncomplicated; Z71.6 Tobacco abuse counseling; Z79.899 Other long term (current) drug therapy
CPT/HCPCS: 36415; 80048; 80076; 83605; 83735; 85025; 87040; 87635; 96365; 96367; 96375; 99284; J1885; J2405; J2543; J3370

== ENCOUNTER 2023-03-10 09:48 | Emergency (ER) | payer SELFPAY ==
[2023-03-10 10:52] VITALS: BP 144/97; PULSE 64; RESP 18; TEMP 36.5; O2SAT 96; BMI 33.4
[2023-03-10 12:45] VITALS: BP 147/94; PULSE 58; RESP 18; TEMP 36.6; O2SAT 98
--- NOTE | 2023-03-10 12:57 | ED_ITS ---
HPI - Dental/Oral General Chief complaint: Dental/Oral Stated complaint: wisdom tooth broke / abscess on head Time Seen by Provider: 03/10/23 12:46 Source: patient Mode of arrival: ambulatory Limitations: no limitations History of Present Illness HPI Narrative: 37 year old male with no chronic medical history presents to ER for evaluation of tooth pain. Patient reports he broke his bottom right wisdom tooth 2-3 weeks ago and the pain has acutely worsened in the last 2 days. Reports the pain is severe, keeps him up at night, and extends downwards into neck. Reports associated sweats, pain with chewing, inability to clench jaw completely. Denies headache, fevers, chills, nausea, vomiting, or pain elsewhere. Reports recent diarrhea that has since resolved. Denies seeing dentist regularly. MD Complaint: tooth pain and tooth injury Location: Tooth # (32) Onset (ago): day(s) (2 days ago) Duration: constant Severity: severe Exacerbating factors: chewing Context: poor dental care Associated symptoms: gum swelling Treatment prior to arrival: oral analgesic (Ibuprofen.) Related Data Previous Rx's Medication Instructions Recorded acetaminophen 500 mg tablet 1,000 mg PO QID PRN fever or pain 01/08/21 (Tylenol Extra Strength) #14 tabs cephalexin 500 mg capsule 500 mg PO Q6H 10 days #40 caps 01/08/21 doxycycline monohydrate 100 mg 100 mg PO BID 10 days #20 caps 01/08/21 capsule ibuprofen 800 mg tablet 800 mg PO Q8H PRN pain #14 tabs 01/08/21 oxycodone 5 mg tablet 5 mg PO BID PRN pain #12 tabs 01/08/21 acetaminophen 500 mg tablet 500 mg PO Q6H PRN pain or fever 01/15/21 (Tylenol Extra Strength) #20 tabs cephalexin 500 mg capsule 500 mg PO QID 5 days #20 caps 01/15/21 doxycycline hyclate 100 mg tablet 100 mg PO BID 5 days #10 tabs 01/15/21 naproxen 500 mg tablet 500 mg PO BID PRN pain 10 days #20 01/15/21 tabs cephalexin 500 mg capsule 500 mg PO BID 10 days #20 caps 03/26/21 doxycycline hyclate 100 mg capsule 100 mg PO BID 10 days #20 caps 03/26/21 amoxicillin 875 mg-potassium 1 tab PO BID #14 tabs 03/10/23 clavulanate 125 mg tablet ibuprofen 600 mg tablet 600 mg PO Q8H PRN pain #20 tabs 03/10/23 tramadol 50 mg tablet 50 mg PO Q6H PRN severe pain 03/10/23 (scale score 7-10) #7 tabs Allergies Allergy/AdvReac Type Severity Reaction Status Date / Time No Known Allergies Allergy Verified 03/25/21 13:27 [No Known Allergies*] Review of Systems Review of Systems: Yes all other systems are reviewed and are negative [facility] Past Medical History Medical History Cellulitis No active medical problems Social History Social History Alcohol intake: current Alcohol intake frequency: holidays/special occasions only Patient Tobacco Use Status: Current everyday Tobacco user Smoked in Last 30 Days: Yes Use of substances other than those prescribed or required for medical reasons: No Substance Use Type: Marijuana Advance Directives: No Advance Directives Information Provided: No Physical Exam Vital Signs: Vital Signs: Last Vital Signs Temp 97.8 F 03/10/23 12:45 Pulse 58 03/10/23 12:45 Resp 18 03/10/23 12:45 BP 147/94 H 03/10/23 12:45 Pulse Ox 98 03/10/23 12:45 O2 Del Method Room Air 03/10/23 12:45 BMI result Body Mass Index 33.4 Const: General: cooperative, healthy appearing, comfortable and no acute distress Orientation/consciousness: patient oriented x3 HEENT: Head: Yes normal to inspection, Yes normocephalic and Yes scalp lesion (3 hyperpigmented circular lesions, nontender without fluctuance ) Mouth: Normal oral and palatal mucosa present Teeth and gingiva: abnormal tooth and associated gingiva (Inferior right molar (wisdom) tooth broken in half. Buccal mucosa inflamed.) and caries Throat: Yes posterior oropharynx normal Neck: Neck: Yes no lymphadenopathy Neuro: General: patient oriented x3 Medical Decision Making Medical Decision Making MDM Narrative: 37 year old male with no chronic medical history presents to ER for evaluation of tooth pain that started 2 nights ago, refractory to ibuprofen. Physical exam reveals chipped inferior right molar (wisdom) tooth, with adjacent inflamed, erythematous buccal mucosa. Evidence of multiple caries. No cervical lymphadenopathy. Workup including vital signs were unremarkable. Will discharge home with empiric Augmentin, pain control. recommend follow up with dentist as soon as possible. return precautions were discussed. Differential Diagnosis Differential Diagnoses: The differential diagnosis associated with the presentation includes Broken molar, gingival infection, dental caries, oropharyngeal abscess. External Record Review External record reviewed: Prior outpatient labs Prescription Management I considered prescription management with: Pain Medication and Antibiotic Chronic Conditions Patient?s care impacted by: Other (poor dental care) Critical Care Time Critical Care Time Critical Care Time: No Discharge Plan Discharge Clinical Impression: Fracture of tooth Patient Disposition: Home, Self-Care Instructions: Toothache (ED) Additional Instructions: Take the prescribed antibiotics as directed, complete the entire course and do not miss any doses take the prescribed ibuprofen around the clock as prescribed. Take with food. Also recommend taking Tylenol 975 mg every 6- 8 hours As well. Take the prescribed tramadol as needed for severe pain only. Do not drive after taking this medication. It is very important that you follow-up with a dentist as soon as possible. An emergency dental list has been provided to you. If you develop new or worsening symptoms call 911 or come back to the ER for further evaluation. Prescriptions: New ibuprofen 600 mg tablet 600 mg PO Q8H PRN (Reason: pain) Qty: 20 0RF tramadol 50 mg tablet 50 mg PO Q6H PRN (Reason: severe pain (scale score 7-10)) Qty: 7 0RF amoxicillin-pot clavulanate 875-125 mg tablet 1 tab PO BID Qty: 14 0RF No Action ibuprofen 800 mg tablet 800 mg PO Q8H PRN (Reason: pain) Qty: 14 0RF acetaminophen [Tylenol Extra Strength] 500 mg tablet 1,000 mg PO QID PRN (Reason: fever or pain) Qty: 14 0RF doxycycline monohydrate 100 mg capsule 100 mg PO BID 10 Days Qty: 20 0RF oxycodone 5 mg tablet 5 mg PO BID PRN (Reason: pain) Qty: 12 0RF cephalexin 500 mg capsule 500 mg PO Q6H 10 Days Qty: 40 0RF acetaminophen [Tylenol Extra Strength] 500 mg tablet 500 mg PO Q6H PRN (Reason: pain or fever) Qty: 20 0RF doxycycline hyclate 100 mg tablet 100 mg PO BID 5 Days Qty: 10 0RF naproxen 500 mg tablet 500 mg PO BID PRN (Reason: pain) 10 Days Qty: 20 0RF cephalexin 500 mg capsule 500 mg PO QID 5 Days Qty: 20 0RF doxycycline hyclate 100 mg capsule 100 mg PO BID 10 Days Qty: 20 0RF cephalexin 500 mg capsule 500 mg PO BID 10 Days Qty: 20 0RF Stand Alone Forms: Work/School Release
== END 2023-03-10 14:52 | disposition home or self-care (01) ==
PROVIDERS: Emergency Provider Emergency Medicine
DX: K08.531 Fractured dental restorative material with loss of material (principal); K08.89 Other specified disorders of teeth and supporting structures; F17.200 Nicotine dependence, unspecified, uncomplicated; F12.90 Cannabis use, unspecified, uncomplicated
CPT/HCPCS: 99283; 99284